=== PATIENT | female | born 1965 | race Caucasian/White ===

== ENCOUNTER 2023-08-17 21:21 | Emergency (ER) | payer MEDICAID ==
[~2023-08-17] VITALS: Ht 162.6 cm; Wt 60.8 kg
[2023-08-17] MEDS ORDERED: HYDR-4209 PO (23:50)
[2023-08-17] MEDS ORDERED: ONDA4TAB11 PO (23:50)
[2023-08-18 00:11] LABS: BASOPHILS # (AUTO) 0.1 K/UL (0.0-0.2); BASOPHILS % (AUTO) 0.8 % (0.0-2.0); EOSINOPHILS # (AUTO) 0.1 K/uL (0.0-0.7); EOSINOPHILS % (AUTO) 0.6 % (0.0-7.0); HEMATOCRIT 43.2 % (31.2-41.9); HEMOGLOBIN 14.5 g/dL (10.9-14.3); LYMPHOCYTES # (AUTO) 2.4 K/uL (0.8-4.8); LYMPHOCYTES % (AUTO) 17.4 % (20.5-51.5); MEAN CORPUSCULAR HEMOGLOBIN 29.2 uug (24.7-32.8); MEAN CORPUSCULAR HGB CONC 34 g/dL (32.3-35.6); MEAN CORPUSCULAR VOLUME 86.8 fL (75.5-95.3); MONOCYTES # (AUTO) 0.9 K/uL (0.1-1.30); MONOCYTES % (AUTO) 6.8 % (0.0-11.0); NEUTROPHILS # (AUTO) 10.3 K/uL (1.8-8.9); NEUTROPHILS % (AUTO) 74.4 % (38.5-71.5); PLATELET COUNT (AUTO) 290 K/uL (179-408); RED BLOOD CELL COUNT(AUTO) 4.98 MIL/uL (3.63-4.92); RED CELL DISTRIBUTION WIDTH 12.9 % (12.3-17.7); WHITE BLOOD COUNT (AUTO) 13.8 K/uL (3.8-11.8)
[2023-08-18 01:12] LABS: DIFFERENTIAL COMMENT 1
[2023-08-18] MEDS ORDERED: ACETAMINOPHEN ES 500 MG TABLET ONE (01:25)
[2023-08-18] MEDS: ACETAMINOPHEN ES 500 MG TABLET PO ONE (01:30)
[2023-08-18 02:29] LABS: POTASSIUM 3.4 mmol/L (3.5-5.1)
[2023-08-18 02:30] LABS: ALBUMIN 3.5 g/dL (3.4-5.0); BILIRUBIN,TOTAL 0.3 mg/dL (0.2-1.0); CALCIUM 9.6 mg/dL (8.5-10.1); CREATININE 0.8 mg/dL (0.6-1.3); TOTAL PROTEIN, SERUM 7.6 g/dL (6.4-8.2)
[2023-08-18 05:55] VITALS: BP 151/85; TEMP 98.4; O2SAT 97
== END 2023-08-18 04:10 | disposition home or self-care (01) ==
LOC: ER 21:23
DX: S20.219A Contusion of unspecified front wall of thorax, initial encounter (principal); Z79.899 Other long term (current) drug therapy; W22.8XXA Striking against or struck by other objects, initial encounter; Y93.89 Activity, other specified; Y92.89 Other specified places as the place of occurrence of the external cause; Y99.8 Other external cause status
CPT/HCPCS: 36415; 71045; 71250; 84484; 85025; 93005; A4606; A4663; A9150

== ENCOUNTER 2024-01-06 14:39 | Emergency (ER) | payer MEDICAID ==
[~2024-01-06] VITALS: Ht 162.6 cm; Wt 60.8 kg
[~2024-01-06 14:39] MED LIST: HYDR-4209 PO; ONDA4TAB11 PO
[2024-01-06 14:56] VITALS: O2SAT 97
[2024-01-06] MEDS ORDERED: HYDR-3980 PO (16:48)
== END 2024-01-06 16:56 | disposition home or self-care (01) ==
LOC: ER 14:39
DX: S92.531A Displaced fracture of distal phalanx of right lesser toe(s), initial encounter for closed fracture (principal); Z79.899 Other long term (current) drug therapy; X58.XXXA Exposure to other specified factors, initial encounter; Y93.89 Activity, other specified; Y92.89 Other specified places as the place of occurrence of the external cause; Y99.8 Other external cause status
CPT/HCPCS: 73660; A4606; A4663